=== PATIENT | male | born 1970 | race Caucasian/White ===

== ENCOUNTER → 2020-08-26 14:29 | Outpatient (BNVA) | payer BC, MEDICAID, SELFPAY | PROVIDERS: PCP Family Medicine; Referring Provider Family Medicine; Visit Provider Internal Medicine Gastroenterology | DX: Z76.89 Persons encountering health services in other specified circumstances (principal) ==

== ENCOUNTER 2021-03-20 07:56 | Day surgery (SDC) | payer BC, MEDICAID, SELFPAY ==
[2021-03-20 08:05] VITALS: BMI 33.2
[2021-03-20 08:18] VITALS: BP 141/89; PULSE 75; RESP 18; TEMP 36.5; O2SAT 98
--- NOTE | 2021-03-20 08:57 | HO.ANESPROP2 ---
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 (Acute) Colon cancer screening (Acute) Diverticulosis (Acute) High cholesterol (Acute) Renal stones (Acute) Past Medical History Medical History Elevated cholesterol GERD (gastroesophageal reflux disease) HTN (hypertension) Family History Family History Father Family history of high blood pressure Hx of esophageal malignancy History of pancreatic cancer Mother Hx of cancer of lung Surgical History Surgical History History of colonoscopy Hx of endoscopy S/P correction of deviated nasal septum (~2012) Social History Social History Alcohol intake: never Patient Tobacco Use Status: Never used Tobacco Use of substances other than those prescribed or required for medical reasons: No Are you DNR?: No Advance Directives: No Advance Directives Information Provided: Yes Meds Allergies Allergy/AdvReac Type Severity Reaction Status Date / Time No Known Allergies Allergy Verified 03/20/21 08:04 [No Known Allergies*] Exam Exam Date and Time: March 20, 2021 0857 Height,Weight and Vital Signs: Height 5 ft 9 in Weight 102.058 kg Last Vital Signs Temp 97.7 F 03/20/21 08:18 Pulse 75 03/20/21 08:18 Resp 18 03/20/21 08:18 BP 141/89 H 03/20/21 08:18 Pulse Ox 98 03/20/21 08:18 Airway Mallampati Class: II TM Dist: >3cm Neck ROM: Full
--- NOTE | 2021-03-20 09:03 | W.PM.OPN ---
Operative Note Operative Note Date of Service: 03/20/21 Narrative: Pre-op diagnosis: GERD, follow-up of Ron's metaplasia Post-op diagnosis: same Procedure: FLEXIBLE TRANSORAL UPPER GASTROINTESTINAL ENDOSCOPY WITH BIOPSIES Consent: Indications for the procedure and potential complications of bleeding, perforation, reaction to medications and missed diagnosis were discussed with the patient and informed consent was obtained. Instrument: Olympus GIF H 190 mid size upper endoscope Monitoring: Vital signs and clinical assessment, continuous EKG monitoring, Pulse oximetry, Carbon Dioxide monitoring and blood pressure monitoring were done throughout the procedure. Procedure: The patient was placed in the left lateral decubitis position and pre-procedure medications were administered and a bite block was placed. The endoscope was inserted into the mouth and advanced under direct vision to the third part of duodenum. A careful inspection was made as the upper endoscope was withdrawn including a retroflexed examination of the proximal stomach; Findings and interventions are described below. Findings: Larynx: Normal Esophagus: GE junction at 36 cms, hiatal hernia 36 to 40 cms. No esophagitis and two 1.5 to 2 cms tongues of Ron?s from 34 to 36 cms - biopsied. Stomach: Mild gastric erythema. Biopsies obtained during last EGD were negative for Helicobacter pylori. Grade 4 flap valve on retroflexed examination of the cardia. Duodenum: Normal bulb and descending duodenum Intervention: Biopsies as noted above Impression and Post Procedure Diagnosis: Endoscopy Findings: ESOPHAGUS: GE junction at 36 cms, hiatal hernia 36 to 40 cms. Focal esophagitis at GE junction and two 1.5 to 2 cms tongues of suspected Ron?s from 34 to 36 cms - biopsied. Plan: Await pathology results Patient has an appointment on 04/02/21 in the GI Clinic with Britany Duran M.D.-. Above findings were reviewed with the patient and Ron's handout was given in the discharge area Surgeon: Britany Duran MD Anesthesia: MAC (Teresita Agrawal CRNA) Was an Food Counselor used for this Procedure?: Yes Food Counselor: Stephanie Esteban Estimated blood loss (mL): 0 Pathology: other (A. Distal esophagus - rule out Ron's/dysplasia) Condition: stable Disposition: PACU
--- NOTE | 2021-03-20 09:03 | MHC.SHP ---
Pre-Procedural Eval Section A Date of Service: 03/20/21 The patient is an INPATIENT: No The History & Physical has been completed within 30 days and I have reviewed it.: No Section B Chief Complaint: Barretts Details of Present Illness: For follow-up of Ron's metaplasia Relevant Family History (Specify if Yes): Yes Relevant Social History: None Present Medications: see Short Stay Collaborative assessment Medical History: Significant History (GERD, Ron's esophagus without dysplasia, high cholesterol, renal stones) History of Previous Operations: Relevant previous surgery/procedure and date(s) (History of colonoscopy Hx of endoscopy S/P correction of deviated nasal septum (~2012)) Allergies: Allergies Allergy/AdvReac Type Severity Reaction Status Date / Time No Known Allergies Allergy Verified 03/20/21 08:04 [No Known Allergies*] Review of Systems Sugical H&P ROS: Negative: Constitution, Cardiovascular, Respiratory and Gastrointestinal Exam Surgical H&P Exam: Normal: HEENT, Normal: Heart, Normal: Lungs and Normal: Abdomen Plan Diagnosis/Plan: Unchanged I have reviewed the history and physical and performed a pertinent physical examination on my patient. No changes have occurred unless specified.
[2021-03-20] MEDS: Lactated Ringers 1,000 ML 100 ML IVCONT (09:04)
[2021-03-20 09:29] VITALS: BP 103/60; PULSE 65; RESP 15; TEMP 36.1; O2SAT 97
[2021-03-20 09:44] VITALS: BP 110/73; PULSE 63; RESP 14; O2SAT 95
[2021-03-20 10:02] VITALS: BP 115/77; PULSE 55; RESP 15; TEMP 36.2; O2SAT 97
== END 2021-03-20 10:56 | disposition home or self-care (01) ==
PROVIDERS: PCP Internal Medicine; Visit Provider Internal Medicine Gastroenterology
PROC: 0DJ08ZZ Inspection of Upper Intestinal Tract, Via Natural or Artificial Opening Endoscopic (ICD-10-PCS; CPT 43235; principal; 2021-03-20 09:30)
DX: K22.70 Barrett's esophagus without dysplasia (principal); K21.9 Gastro-esophageal reflux disease without esophagitis; K44.9 Diaphragmatic hernia without obstruction or gangrene; E78.00 Pure hypercholesterolemia, unspecified; I10 Essential (primary) hypertension; Z79.899 Other long term (current) drug therapy
CPT/HCPCS: 43239; 88305

== ENCOUNTER → 2021-04-02 15:07 | Outpatient (BNVA) | payer BC, MEDICAID, SELFPAY | PROVIDERS: PCP Internal Medicine; Visit Provider Internal Medicine Gastroenterology ==

== ENCOUNTER → 2022-08-18 08:53 | Outpatient (BNVA) | payer SELFPAY | PROVIDERS: Visit Provider Physician Assistant | DX: Z02.79 Encounter for issue of other medical certificate (principal) ==

== ENCOUNTER → 2023-03-31 07:58 | Outpatient (BNVA) | payer BC, SELFPAY | PROVIDERS: Visit Provider Internal Medicine Gastroenterology ==

== ENCOUNTER 2024-03-22 07:59 | Outpatient (AMB) | payer BC, SELFPAY ==
--- NOTE | 2024-03-22 08:08 | A.OFFVIS_ITS ---
Vital Signs 03/22/24 08:10 Height 5 ft 9 in Weight 220 lb 7.396 oz BMI 32.6 BP 145/92 H Blood Pressure Location Lt brachial Position Sitting Pulse 78 Intake Visit Reasons: 1 year follow up Intake Note: Pro presents in the office as a 1 year follow up. CC: He states that he takes omeprazole as needs - intermittent and states he is not having an concerns at this time. Dog Warden Required: No Allergies Seasonal Allergies Allergy (Mild, Verified 03/22/24 08:10) Unknown Medication List - Last Reconciled 03/22/24 by Britany Duran MD omeprazole 20 mg PO DAILY 90 days HPI HPI 1 year follow up: Details: GI CLINIC VISIT FOR THIS 53-YEAR-OLD MALE FOR FOLLOW-UP OF GERD AND BARRETTS ESOPHAGUS ? CHRONIC ILLNESSES: high bp, high cholesterol, renal stones ? LABS IN [facility]: 02/2019 Normal CBC, chem panel and LFTs. ?ENDOSCOPIC PROCEDURES: 03/20/21 EGD SHOWED: ESOPHAGUS: GE junction at 36 cms, hiatal hernia 36 to 40 cms. Focal esophagitis at GE junction and two 1.5 to 2 cms tongues of suspected Ron?s from 34 to 36 cms - biopsied. Plan:? Patient has an appointment on 04/02/21 in the GI Clinic with Britany Duran M.D.-. Above findings were reviewed with the patient and Ron's handout was given in the discharge area BIOPSIES SHOWED: Esophagus, distal, biopsy: - Ron esophagus with background moderate chronic inactive inflammation. - No dysplasia seen. - Squamous mucosa within normal limits. 01/29/20 EGD AND COLONOSCOPY SHOWED: ? ESOPHAGUS: GE junction at 36 cms, hiatal hernia 36 to 40 cms. Focal esophagitis at GE junction and two 1.5 to 2 cms tongues of suspected Barretts from 34 to 36 cms - biopsied. ? STOMACH: Gastritis ? Colonoscopy Findings: ? No polyps were detected ? Moderate diverticulosis in the sigmoid colon ? Moderate hemorrhoids on retroflexed exam. ? Plan: ? Await pathology results ? Start Omeprazole 20 mg once a day for GERD ? Patient has an appointment on 02/14/20 in the GI Clinic with Britany paz M.D.-. ? Repeat Colonoscopy interval in 10 years. ? Above findings were reviewed with the patient. ? BIOPSIES SHOWED: ? A. Stomach, biopsy: Gastric mucosa with mild chronic, inactive gastritis; negative for ? Helicobacter pylori; negative for intestinal metaplasia/dysplasia. ? B. Esophagus, biopsy: Columnar mucosa with chronic inactive inflammation and ? intestinal metaplasia (see Comment); negative for dysplasia; squamous epithelium not present. ? Comment: This finding may represent Ron's metaplasia. Clinical and endoscopic correlation is necessary. ?TODAY'S VISIT PCP is Dr Murrieta CC: He states that he takes omeprazole as needs - intermittent and states he is not having an concerns at this time. Stopped cholestrol and blood pressure medications in Oct and plans to resume GERD symptoms comes and goes. Was taking Omeprazole prn due to concern for side effects and can have symptoms (2-3 times a week) and would like to follow a schedule Advised to take Omeprazole every other day until next EGD is performed PAST VISIT: Decreased Omeprazole from daily to every other day and now taking every 3rd day. Takes an extra Omeprazole if he notes symptoms which is rare and usually associated with acidic foods Changed his diet since mid Oct and has lost 18 lbs since. Going on a cruise to the [facility] next week. Has not had any heartburn since he started taking Omeprazole once a day. Noted recurrent symptoms when he ran out of Omeprazole for a few days. Has not noted much acid reflux. 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 ? Intermittent heartburn when he bends over and if he has spicy food x few years. ? Drinking coffee can cause heartburn. ? Can have symptoms at night after dinner and resolves with 2 tab of TUMS - once a week, sometimes a couple of days in a row. ? Patient denies change in bowel habits, black stools or rectal bleeding ? Denies dysphagia, nausea or vomiting, change in appetite or weight. ? Dad had GERD/Barretts's esophagus and esophageal cancer and ? pancreatic CA - smoker and daily ETOH. ? Mother had lung cancer - had surgery - ? past smoking ? Denies known Fh of colon polyps, colon cancer. ? Denies sleep apnea and snores intermittently ? Denies problems with anesthesia in the?past PFSH Medical History GERD (gastroesophageal reflux disease) Elevated cholesterol HTN (hypertension) Surgical History Hx of esophagogastroduodenoscopy S/P correction of deviated nasal septum (~2012) Hx of endoscopy History of colonoscopy Family History Father Family history of high blood pressure Hx of esophageal malignancy History of pancreatic cancer Mother Hx of cancer of lung Social History Alcohol intake: never Patient Tobacco Use Status: Never used Tobacco Review of Systems Const All systems reviewed & are unremarkable except as noted in HPI and below Physical Exam Vital Signs: Last Vital Signs Pulse 78 03/22/24 08:10 BP 145/92 H 03/22/24 08:10 BMI result Body Mass Index 32.6 Const General: healthy appearing and no acute distress Nutritional Appearance: obese Orientation/consciousness: patient oriented x3 Limitations: no limitations HEENT Head: Yes normal to inspection Ears: hearing grossly normal bilaterally Mouth: Normal oral and palatal mucosa present Eyes Sclerae: sclerae normal Pupils: Equal, round and reactive pupils present Neck Neck: Yes normal visual inspection Chest Chest palpation & inspection: normal inspection of the chest Resp Effort & Inspection: normal respiratory effort Auscultation: clear to auscultation bilaterally Cardio Palpation: normal PMI Rate: regular rate Rhythm: regular rhythm Heart sounds: S1 normal heart sound present, S2 normal heart sound present and no murmurs GI Palpation (GI): Soft to palpation, nontender and No hepatosplenomegaly present Auscultation: normal bowel sounds Rectal Exam - Male: Yes deferred Skin General skin exam: no rashes or lesions noted Neuro General: patient oriented x3, gait normal and moves all extremities Cranial nerves: Yes Equal, round and reactive pupils present Psych Appearance: grossly normal Mental Status: mental status grossly normal Assessment & Plan Assessment & Plan (1) GERD with esophagitis: Comment: Continue omeprazole 20 mg once daily. 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 03/20/21 EGD SHOWED: GE junction at 36 cms, hiatal hernia 36 to 40 cms. Focal esophagitis at GE junction and two 1.5 to 2 cms tongues of suspected Ron?s from 34 to 36 cms - biopsied. BIOPSIES SHOWED: Esophagus, distal, biopsy: - Ron esophagus with background moderate chronic inactive inflammation. - No dysplasia seen. - Squamous mucosa within normal limits. FU EGD in 3 yrs (due 01/2024) Code(s): K22.70 - Ron's esophagus without dysplasia Category: Medical (3) Colon cancer screening: Comment: 01/29/2020 colonoscopy showed diverticulosis and no polyps were detected. Patient denies known family history of colon cancer, his mom has a history of colon polyps. Patient was advised repeat colonoscopy in 5 years (due 01/2025) Code(s): Z12.11 - Encounter for screening for malignant neoplasm of colon Category: Medical Plan 53 YM with high bp, high cholesterol, renal stones seen for symptoms of itermittent heartburn associated with bending and intake of spicy food. Dad had GERD/Barretts's esophagus and esophageal cancer and ? pancreatic CA - smoker and daily ETOH. 01/29/20 EGD showed gastritis and focal esophagitis at GE junction and two 1.5 to 2 cms tongues of suspected Barretts. 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 02/2021 Had repeat EGD? for Ron's surveillance. 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
[2024-03-22 08:10] VITALS: BP 145/92; PULSE 78; BMI 32.6
== END 2024-03-22 09:18 | disposition home or self-care (01) ==
LOC: HO.HGI 07:59
PROVIDERS: Visit Provider Internal Medicine Gastroenterology
DX: K21.00 Gastro-esophageal reflux disease with esophagitis, without bleeding (principal); K22.70 Barrett's esophagus without dysplasia; Z12.11 Encounter for screening for malignant neoplasm of colon
CPT/HCPCS: 99214

== ENCOUNTER → 2024-03-22 07:59 | Outpatient (BNVA) | payer BC, SELFPAY | PROVIDERS: Visit Provider Internal Medicine Gastroenterology ==

== ENCOUNTER 2024-09-28 07:35 | Day surgery (SDC) | payer BC, SELFPAY ==
--- NOTE | 2024-09-27 10:14 | HO.ANESPROP2 ---
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 (Acute) Colon cancer screening (Acute) Diverticulosis (Acute) High cholesterol (Acute) Renal stones (Acute) Past Medical History Medical History GERD (gastroesophageal reflux disease) Elevated cholesterol HTN (hypertension) Family History Family History Father Family history of high blood pressure Hx of esophageal malignancy History of pancreatic cancer Mother Hx of cancer of lung Surgical History Surgical History Hx of esophagogastroduodenoscopy S/P correction of deviated nasal septum (~2012) Hx of endoscopy History of colonoscopy Social History Social History Alcohol intake: never Patient Tobacco Use Status: Never used Tobacco Meds Allergies Allergy/AdvReac Type Severity Reaction Status Date / Time Seasonal Allergies Allergy Mild Unknown Verified 03/22/24 08:10 Assessment and Plan Assessment Anesthesia Assessment: Chart Reviewed
[2024-09-28 07:44] VITALS: BP 149/93; PULSE 87; RESP 16; TEMP 36.8; O2SAT 97; BMI 34.0
[2024-09-28] MEDS: Lactated Ringers 1,000 ML 100 ML IVCONT (07:57)
--- NOTE | 2024-09-28 08:09 | MHC.SHP ---
Pre-Procedural Eval Section A - 24 Hr Update-Section A only Date of Service: 09/28/24 The patient is an INPATIENT: No The patient has been examined within 24 hours of the surgical procedure. 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 Details of Present Illness: For follow-up of Ron's metaplasia Relevant Family History (Specify if Yes): Yes Relevant Social History: None Present Medications: see Short Stay Collaborative assessment Medical History: Significant History (GERD, Ron's esophagus without dysplasia, high cholesterol, renal stones) History of Previous Operations: Relevant previous surgery/procedure and date(s) (History of colonoscopy Hx of endoscopy S/P correction of deviated nasal septum (~2012)) Allergies: Allergies Allergy/AdvReac Type Severity Reaction Status Date / Time Seasonal Allergies Allergy Mild Unknown Verified 03/22/24 08:10 Review of Systems Sugical H&P ROS: Negative: Constitution, Cardiovascular, Respiratory and Gastrointestinal Exam Surgical H&P Exam: Normal: HEENT, Normal: Heart, Normal: Lungs and Normal: Abdomen Plan Diagnosis/Plan: Unchanged I have reviewed the history and physical and performed a pertinent physical examination on my patient. No changes have occurred unless specified. Time Spent With Patient Time: Total time managing care of this patient today ____ minutes.
--- NOTE | 2024-09-28 08:27 | HO.ANESPROP2 ---
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 (Acute) Colon cancer screening (Acute) Diverticulosis (Acute) High cholesterol (Acute) Renal stones (Acute) Past Medical History Medical History GERD (gastroesophageal reflux disease) Elevated cholesterol HTN (hypertension) Functional capacity: independent ambulation Family History Family History Father Family history of high blood pressure Hx of esophageal malignancy History of pancreatic cancer Mother Hx of cancer of lung Family history of problems with anesthesia: No Surgical History Surgical History Hx of esophagogastroduodenoscopy S/P correction of deviated nasal septum (~2012) Hx of endoscopy History of colonoscopy History of Problems with Anesthesia: No Social History Social History Are you a primary manager critical care to a significant other at home: No Do you presently have visiting nurse or other home services: No Alcohol intake: never Patient Tobacco Use Status: Never used Tobacco Use of substances other than those prescribed or required for medical reasons: No Have you been hit, kicked, punched, or otherwise hurt by someone within the past year? If so, by whom?: No Are you DNR?: No Advance Directives: No Advance Directives Information Provided: Yes Recently lost weight without trying: No Meds Allergies Allergy/AdvReac Type Severity Reaction Status Date / Time Seasonal Allergies Allergy Mild Unknown Verified 03/22/24 08:10 Active Medications: Current Medications Lactated Ringer's (Lr) 1,000 mls @ 100 mls/hr IVCONT .Q10H GEORGI Last Admin: 09/28/24 07:57 Dose: 100 mls/hr Exam Height,Weight and Vital Signs: Height 5 ft 9 in Weight 104.326 kg Last Vital Signs Temp 98.2 F 09/28/24 07:44 Pulse 87 09/28/24 07:44 Resp 16 09/28/24 07:44 BP 149/93 H 09/28/24 07:44 Pulse Ox 97 09/28/24 07:44 O2 Del Method Room Air 09/28/24 07:44 Airway Mallampati Class: II TM Dist: >3cm Neck ROM: Full Heart: RRR Lungs: CTA Assessment and Plan Assessment Anesthesia Assessment: Anesthesia Plan Discussed and Chart Reviewed Final Anesthetic Review Family History of Problems with Anesthesia: No History of Problems with Anesthesia: No NPO: Yes ASA Class: II Final Preanesthetic Review: Meds/Allgs Chart Reviewed, Consent Obtained/Reviewed and Anes Risks/Benef Reviewed Patient Risk: Low Procedure Risk: Low Anesthetic Plan Anesthetic Plan: MAC: Disposition: Standard PACU
--- NOTE | 2024-09-28 08:47 | W.PM.OPN ---
Operative Note Operative Note Date of Service: 09/28/24 Narrative: FLEXIBLE TRANSORAL UPPER GASTROINTESTINAL ENDOSCOPY WITH BIOPSIES Pre-op diagnosis: GERD, follow-up of Barretts esophagus Post-op diagnosis: GERD, hiatal hernia, Barretts esophagus Endoscopist:? Britany Duran MD Anesthesia:?MAC UPPER ENDOSCOPY Consent: Indications for the procedure and potential complications of bleeding, perforation, reaction to medications and missed diagnosis were discussed with the patient and informed consent was obtained. Instrument: Olympus GIF H 190 mid size upper endoscope Monitoring: Vital signs and clinical assessment, continuous EKG monitoring, Pulse oximetry, Carbon Dioxide monitoring and blood pressure monitoring were done throughout the procedure. Procedure: The patient was placed in the left lateral decubitis position and pre-procedure medications were administered and a bite block was placed. The endoscope was inserted into the mouth and advanced under direct vision to the third part of duodenum. A careful inspection was made as the upper endoscope was withdrawn including a retroflexed examination of the proximal stomach; Findings and interventions are described below. Findings: Larynx: Normal Esophagus: GE junction at 36 cms, hiatal hernia 36 to 40 cms. No esophagitis and two 1.5 to 2 cms tongues of Ron?s from 34 to 36 cms - surveillance biopsies were obtaied. Stomach: Mild gastric erythema. Biopsies obtained during last EGD were negative for Helicobacter pylori. Grade 4 flap valve on retroflexed examination of the cardia. Duodenum: Normal bulb and descending duodenum Intervention: Biopsies as noted above Impression and Post Procedure Diagnosis: Endoscopy Findings: ESOPHAGUS: Hiatal hernia, two 1.5 to 2 cms tongues of Ron's metaplasia - surveillance biopsies were obtained Plan: Pt has a FU appointment on 10/11/[address] Duran. Repeat EGD in 3 years for follow-up of Barretts. Above findings were reviewed with the patient and relevant handouts were given and the discharge area. BIOPSIES SHOWED: Esophagus, distal, biopsy: Squamous mucosa with focal intraepithelial neutrophils and rare eosinophils (up to 1 per high-power field) consistent with esophagitis, and columnar mucosa with mild inflammation and intestinal metaplasia consistent with Ron's mucosa; negative for dysplasia.
[2024-09-28 08:52] VITALS: BP 104/63; PULSE 80; RESP 18; TEMP 36.5; O2SAT 94
[2024-09-28 09:07] VITALS: BP 119/81; PULSE 78; RESP 16; O2SAT 95
--- NOTE | 2024-09-28 09:13 | HO.POSTANES ---
Post Anesthesia Evaluation Post Anesthesia Evaluation Date of Service: 09/28/24 Vital Signs: Vital Signs Temp Pulse Resp BP Pulse Ox O2 Del Method 09/28/24 09:07 78 16 119/81 95 Room Air 09/28/24 08:52 97.7 F 80 18 104/63 94 Room Air 09/28/24 07:44 98.2 F 87 16 149/93 H 97 Room Air Anesthesia: Monitored Mental Status: Awake Pain Control: Satisfactory Nausea/Vomiting: None Hydration: Adequate Anesthesia-Related Issues: No Anes. Related Issues
[2024-09-28 09:21] VITALS: BP 128/82; PULSE 81; RESP 16; TEMP 36.2; O2SAT 95
--- NOTE | 2024-09-28 09:57 | HO.POSTANES ---
Post Anesthesia Evaluation Post Anesthesia Evaluation Date of Service: 09/28/24 Vital Signs: Vital Signs Temp Pulse Resp BP Pulse Ox O2 Del Method 09/28/24 09:21 97.2 F 81 16 128/82 95 Room Air 09/28/24 09:07 78 16 119/81 95 Room Air 09/28/24 08:52 97.7 F 80 18 104/63 94 Room Air 09/28/24 07:44 98.2 F 87 16 149/93 H 97 Room Air Anesthesia: Monitored Mental Status: Awake Pain Control: Satisfactory Nausea/Vomiting: None Hydration: Adequate Anesthesia-Related Issues: No Anes. Related Issues
== END 2024-09-28 09:55 | disposition home or self-care (01) ==
PROVIDERS: PCP Family Medicine; Visit Provider Internal Medicine Gastroenterology
PROC: 0DJ08ZZ Inspection of Upper Intestinal Tract, Via Natural or Artificial Opening Endoscopic (ICD-10-PCS; CPT 43235; principal; 2024-09-28 08:30)
DX: K22.70 Barrett's esophagus without dysplasia (principal); K21.9 Gastro-esophageal reflux disease without esophagitis; K44.9 Diaphragmatic hernia without obstruction or gangrene; I10 Essential (primary) hypertension; E78.00 Pure hypercholesterolemia, unspecified; N20.0 Calculus of kidney; Z80.0 Family history of malignant neoplasm of digestive organs; Z80.1 Family history of malignant neoplasm of trachea, bronchus and lung; Z79.899 Other long term (current) drug therapy; Z98.890 Other specified postprocedural states
CPT/HCPCS: 43239; 88305; J2003; J2704

== ENCOUNTER → 2024-09-28 07:35 | Outpatient (BNV) | payer BC, SELFPAY | PROVIDERS: PCP Family Medicine; Visit Provider Internal Medicine Gastroenterology | DX: K21.00 Gastro-esophageal reflux disease with esophagitis, without bleeding (principal); K22.70 Barrett's esophagus without dysplasia | CPT/HCPCS: 43239 ==

== ENCOUNTER 2024-10-11 08:01 | Outpatient (AMB) | payer BC, SELFPAY ==
--- NOTE | 2024-10-11 08:09 | A.OFFVIS_ITS ---
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 Patient denies any GI issues for today visit. Stress Test Technician Required: No Accompanied by: Self / Same As Patient Allergies Seasonal Allergies Allergy (Mild, Verified 03/22/24 08:10) Unknown Medication List - Last Reconciled 10/11/24 by Britany Duran MD lisinopril 5 mg PO DAILY omeprazole 20 mg PO DAILY HPI HPI s/p egd: Details: GI CLINIC VISIT FOR THIS 53-YEAR-OLD MALE FOR FOLLOW-UP OF GERD AND BARRETTS ESOPHAGUS ? CHRONIC ILLNESSES: high bp, high cholesterol, renal stones ??TODAY'S VISIT PCP is Dr Murrieta CC: He states that he takes omeprazole as needs - intermittent and states he is not having an concerns at this time. EGD results reviewed with the patient and advised repeat EGD in 3 years Stopped cholestrol and blood pressure medications in Oct and resumed BP meds due to high blood pressure GERD symptoms comes and goes. Was taking Omeprazole prn due to concern for side effects and can have symptoms (2-3 times a week) and would like to follow a schedule Taking Omeprazole every other day with adequate control of symptoms PAST VISIT: Decreased Omeprazole from daily to every other day and now taking every 3rd day. Takes an extra Omeprazole if he notes symptoms which is rare and usually associated with acidic foods Changed his diet since mid Oct and has lost 18 lbs since. Going on a cruise to the [facility] next week. Has not had any heartburn since he started taking Omeprazole once a day. Noted recurrent symptoms when he ran out of Omeprazole for a few days. Has not noted much acid reflux. 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 ? Intermittent heartburn when he bends over and if he has spicy food x few years. ? Drinking coffee can cause heartburn. ? Can have symptoms at night after dinner and resolves with 2 tab of TUMS - once a week, sometimes a couple of days in a row. ? Patient denies change in bowel habits, black stools or rectal bleeding ? Denies dysphagia, nausea or vomiting, change in appetite or weight. ? Dad had GERD/Barretts's esophagus and esophageal cancer and ? pancreatic CA - smoker and daily ETOH. ? Mother had lung cancer - had surgery - ? past smoking ? Denies known Fh of colon polyps, colon cancer. ? Denies sleep apnea and snores intermittently ? Denies problems with anesthesia in the?past ? LABS IN [facility]: 02/2019 Normal CBC, chem panel and LFTs. ?ENDOSCOPIC PROCEDURES: 03/20/21 EGD SHOWED: ESOPHAGUS: GE junction at 36 cms, hiatal hernia 36 to 40 cms. Focal esophagitis at GE junction and two 1.5 to 2 cms tongues of suspected Ron?s from 34 to 36 cms - biopsied. Plan:? Patient has an appointment on 04/02/21 in the GI Clinic with Britany Duran M.D.-. Above findings were reviewed with the patient and Ron's handout was given in the discharge area BIOPSIES SHOWED: Esophagus, distal, biopsy: - Ron esophagus with background moderate chronic inactive inflammation. - No dysplasia seen. - Squamous mucosa within normal limits. 01/29/20 EGD AND COLONOSCOPY SHOWED: ? ESOPHAGUS: GE junction at 36 cms, hiatal hernia 36 to 40 cms. Focal esophagitis at GE junction and two 1.5 to 2 cms tongues of suspected Barretts from 34 to 36 cms - biopsied. ? STOMACH: Gastritis ? Colonoscopy Findings: ? No polyps were detected ? Moderate diverticulosis in the sigmoid colon ? Moderate hemorrhoids on retroflexed exam. ? Plan: ? Await pathology results ? Start Omeprazole 20 mg once a day for GERD ? Patient has an appointment on 02/14/20 in the GI Clinic with Britany Duran M.D.-. ? Repeat Colonoscopy interval in 10 years. ? Above findings were reviewed with the patient. ? BIOPSIES SHOWED: ? A. Stomach, biopsy: Gastric mucosa with mild chronic, inactive gastritis; negative for ? Helicobacter pylori; negative for intestinal metaplasia/dysplasia. ? B. Esophagus, biopsy: Columnar mucosa with chronic inactive inflammation and ? intestinal metaplasia (see Comment); negative for dysplasia; squamous epithelium not present. ? Comment: This finding may represent Ron's metaplasia. Clinical and endoscopic correlation is necessary. REPLACED BY [facility] Medical History (Updated 10/11/24 @ 08:40 by Britany Duran MD) GERD (gastroesophageal reflux disease) Elevated cholesterol HTN (hypertension) Surgical History Hx of esophagogastroduodenoscopy S/P correction of deviated nasal septum (~2012) Hx of endoscopy History of colonoscopy Family History Father Family history of high blood pressure Hx of esophageal malignancy History of pancreatic cancer Mother Hx of cancer of lung Social History Are you a primary transitional care manager to a significant other at home: No Do you presently have visiting nurse or other home services: No Alcohol intake: never Patient Tobacco Use Status: Never used Tobacco Review of Systems Const All systems reviewed & are unremarkable except as noted in HPI and below Physical Exam Vital Signs: Last Vital Signs Pulse 105 H 10/11/24 08:12 BP 122/69 10/11/24 08:12 BMI result Body Mass Index 33.5 Const General: healthy appearing and no acute distress Nutritional Appearance: obese Orientation/consciousness: patient oriented x3 Limitations: no limitations HEENT Head: Yes normal to inspection Ears: hearing grossly normal bilaterally Mouth: Normal oral and palatal mucosa present Eyes Sclerae: sclerae normal Pupils: Equal, round and reactive pupils present Neck Neck: Yes normal visual inspection Chest Chest palpation & inspection: normal inspection of the chest Resp Effort & Inspection: normal respiratory effort Auscultation: clear to auscultation bilaterally Cardio Palpation: normal PMI Rate: regular rate Rhythm: regular rhythm Heart sounds: S1 normal heart sound present, S2 normal heart sound present and no murmurs GI Palpation (GI): Soft to palpation, nontender and No hepatosplenomegaly present Auscultation: normal bowel sounds Rectal Exam - Male: Yes deferred Skin General skin exam: no rashes or lesions noted Neuro General: patient oriented x3, gait normal and moves all extremities Cranial nerves: Yes Equal, round and reactive pupils present Psych Appearance: grossly normal Mental Status: mental status grossly normal Assessment & Plan Assessment & Plan (1) GERD with esophagitis: Comment: Continue omeprazole 20 mg once daily. 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 03/20/21 EGD SHOWED: GE junction at 36 cms, hiatal hernia 36 to 40 cms. Focal esophagitis at GE junction and two 1.5 to 2 cms tongues of suspected Ron?s from 34 to 36 cms - biopsied. BIOPSIES SHOWED: Esophagus, distal, biopsy: - Ron esophagus with background moderate chronic inactive inflammation. - No dysplasia seen. - Squamous mucosa within normal limits. FU EGD in 3 yrs (due 01/2024) Code(s): K22.70 - Ron's esophagus without dysplasia Category: Medical (3) Colon cancer screening: Comment: 01/29/2020 colonoscopy showed diverticulosis and no polyps were detected. Patient denies known family history of colon cancer, his mom has a history of colon polyps. Patient was advised repeat colonoscopy in 5 years (due 01/2025) Code(s): Z12.11 - Encounter for screening for malignant neoplasm of colon Category: Medical (4) Diverticulosis: Code(s): K57.90 - Diverticulosis of intestine, part unspecified, without perforation or abscess without bleeding Category: Medical (5) Obesity: Code(s): E66.9 - Obesity, unspecified Category: Medical Plan 54 YM with high bp, high cholesterol, renal stones seen for symptoms of intermittent heartburn associated with bending and intake of spicy food. Dad had GERD/Barretts's esophagus and esophageal cancer and ? pancreatic CA - smoker and daily ETOH. 01/29/20 EGD showed gastritis and focal esophagitis at GE junction and two 1.5 to 2 cms tongues of suspected Barretts. 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 02/2021 Had repeat EGD? for Ron's surveillance. 09/28/24 EGD was performed for Ron's surveillance and results as noted. 10/11/23 EGD results reviewed with the patient and advised repeat EGD in 3 years Taking Omeprazole every other day with adequate control of symptoms Advised to schedule an abd US to check for fatty liver due to obesity Pt reports he goes to the Gym regularly and does not eat fried or fatty foods and BMI of 33.5 is mostly muscle and less fat. FU in 6 months Orders: Orders US abdomen complete Today E66.9 - Obesity, unspecified Coding Level of Care Code Est Pt Level 3 (26229) Diagnoses GERD with esophagitis K21.00 Ron's esophagus without dysplasia K22.70 Colon cancer screening Z12.11 Diverticulosis K57.90 Obesity E66.9 Time Spent (min) 18
[2024-10-11 08:12] VITALS: BP 122/69; PULSE 105; BMI 33.5
== END 2024-10-11 08:43 | disposition home or self-care (01) ==
PROVIDERS: Visit Provider Internal Medicine Gastroenterology
DX: K21.00 Gastro-esophageal reflux disease with esophagitis, without bleeding (principal); K22.70 Barrett's esophagus without dysplasia; K57.90 Diverticulosis of intestine, part unspecified, without perforation or abscess without bleeding; Z12.11 Encounter for screening for malignant neoplasm of colon
CPT/HCPCS: 99213

== ENCOUNTER 2024-11-12 07:57 | Outpatient (REF) | payer BC, SELFPAY ==
--- NOTE | ~2024-11-12 | US_ITS ---
CLINICAL HISTORY: E66.9 - Obesity, unspecified US abdomen complete Comparison: 02/17/2017 Findings: The visualized pancreas is normal. The aorta and inferior vena cava are normal caliber. The appearance of the liver suggests fatty infiltration without focal lesion. There is no intrahepatic bile duct dilatation. The common duct is 4.8 mm in diameter. The gallbladder is normal. There is no sonographic Reynolds sign. The main portal vein is antegrade. The right kidney is 12.7 cm in length. The left kidney is 13.1 cm in length. The spleen is normal. No ascites. IMPRESSION: 1. Hepatic steatosis. This document has been electronically signed by: Kayden Wilkerson MD on 11/12/2024 08:45:13
== END 2024-11-12 07:58 | disposition home or self-care (01) ==
LOC: HO.US 07:57
PROVIDERS: Visit Provider Internal Medicine Gastroenterology
DX: E66.9 Obesity, unspecified (principal)
CPT/HCPCS: 76700

== ENCOUNTER → 2024-11-12 07:59 | Outpatient (BNV) | payer BC, SELFPAY | PROVIDERS: Visit Provider Specialist | DX: E66.9 Obesity, unspecified (principal) | CPT/HCPCS: 76700 ==

== ENCOUNTER 2025-04-04 07:23 | Outpatient (AMB) | payer BC, SELFPAY ==
--- NOTE | 2025-04-04 07:25 | A.OFFVIS_ITS ---
Vital Signs 04/04/25 07:29 Height 5 ft 9 in Weight 216 lb 0.848 oz BMI 31.9 BP 129/81 Blood Pressure Location Lt brachial Position Sitting Pulse 65 Intake Visit Reasons: 6 month f.u Barretts GERD Intake Note: Pro presents in the office as a 6 month follow up for GERD and Ron's. CC: States that he has some acid reflux! Omeprazole seems to help! Cytotechnologist Supervisor Required: No Allergies Seasonal Allergies Allergy (Mild, Verified 04/04/25 07:25) Unknown Medication List - Last Reconciled 04/04/25 by Britany Duran MD lisinopril 5 mg PO DAILY omeprazole 20 mg PO DAILY HPI HPI 6 month f.u Barretts GERD: Details: GI CLINIC VISIT FOR THIS 54-YEAR-OLD MALE WITH HYPERTENSION AND KIDNEY STONES FOR FOLLOW-UP OF GERD AND BARRETTS ESOPHAGUS ? CHRONIC ILLNESSES: high bp, high cholesterol, renal stones ??TODAY'S VISIT PCP is Dr Murrieta CC: He states that he takes omeprazole as needs - intermittent and states he is not having an concerns at this time. Lost 10 lbs by changing his diet. Taking Omeprazole every other day with adequate control of symptoms PAST VISIT: EGD results reviewed with the patient and advised repeat EGD in 3 years Stopped cholestrol and blood pressure medications in Oct and resumed BP meds due to high blood pressure GERD symptoms comes and goes. Was taking Omeprazole prn due to concern for side effects and can have symptoms (2-3 times a week) and would like to follow a schedule Decreased Omeprazole from daily to every other day and now taking every 3rd day. Takes an extra Omeprazole if he notes symptoms which is rare and usually associated with acidic foods Changed his diet since mid Oct and has lost 18 lbs since. Going on a cruise to the [place] next week. Has not had any heartburn since he started taking Omeprazole once a day. Noted recurrent symptoms when he ran out of Omeprazole for a few days. Has not noted much acid reflux. 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 ? Intermittent heartburn when he bends over and if he has spicy food x few years. ? Drinking coffee can cause heartburn. ? Can have symptoms at night after dinner and resolves with 2 tab of TUMS - once a week, sometimes a couple of days in a row. ? Patient denies change in bowel habits, black stools or rectal bleeding ? Denies dysphagia, nausea or vomiting, change in appetite or weight. ? Dad had GERD/Barretts's esophagus and esophageal cancer and ? pancreatic CA - smoker and daily ETOH. ? Mother had lung cancer - had surgery - ? past smoking ? Denies known Fh of colon polyps, colon cancer. ? Denies sleep apnea and snores intermittently ? Denies problems with anesthesia in the?past ? LABS IN [facility]: 02/2019 Normal CBC, chem panel and LFTs. ?ENDOSCOPIC PROCEDURES: 03/20/21 EGD SHOWED: ESOPHAGUS: GE junction at 36 cms, hiatal hernia 36 to 40 cms. Focal esophagitis at GE junction and two 1.5 to 2 cms tongues of suspected Ron?s from 34 to 36 cms - biopsied. Plan:? Patient has an appointment on 04/02/21 in the GI Clinic with Britany Duran M.D.-. Above findings were reviewed with the patient and Ron's handout was given in the discharge area BIOPSIES SHOWED: Esophagus, distal, biopsy: - Ron esophagus with background moderate chronic inactive inflammation. - No dysplasia seen. - Squamous mucosa within normal limits. 01/29/20 EGD AND COLONOSCOPY SHOWED: ? ESOPHAGUS: GE junction at 36 cms, hiatal hernia 36 to 40 cms. Focal esophagitis at GE junction and two 1.5 to 2 cms tongues of suspected Barretts from 34 to 36 cms - biopsied. ? STOMACH: Gastritis ? Colonoscopy Findings: ? No polyps were detected ? Moderate diverticulosis in the sigmoid colon ? Moderate hemorrhoids on retroflexed exam. ? Plan: ? Await pathology results ? Start Omeprazole 20 mg once a day for GERD ? Patient has an appointment on 02/14/20 in the GI Clinic with Britany Duran M.D.-. ? Repeat Colonoscopy interval in 10 years. ? Above findings were reviewed with the patient. ? BIOPSIES SHOWED: ? A. Stomach, biopsy: Gastric mucosa with mild chronic, inactive gastritis; negative for ? Helicobacter pylori; negative for intestinal metaplasia/dysplasia. ? B. Esophagus, biopsy: Columnar mucosa with chronic inactive inflammation and ? intestinal metaplasia (see Comment); negative for dysplasia; squamous epithelium not present. ? Comment: This finding may represent Ron's metaplasia. Clinical and endoscopic correlation is necessary [facility] Medical History GERD (gastroesophageal reflux disease) Elevated cholesterol HTN (hypertension) Surgical History Hx of esophagogastroduodenoscopy S/P correction of deviated nasal septum (~2012) Hx of endoscopy History of colonoscopy Family History Father Family history of high blood pressure Hx of esophageal malignancy History of pancreatic cancer Mother Hx of cancer of lung Social History Are you a primary medical care manager to a significant other at home: No Do you presently have visiting nurse or other home services: No Alcohol intake: never Patient Tobacco Use Status: Never used Tobacco Review of Systems Const Denies fever(s), Denies headache(s) and Reports weight loss (intentional wt loss of 11 lbs) Eyes Denies eye discharge and Denies irritation ENT Reports Normal hearing present, Denies dysphagia, Denies dizziness and Denies headache(s) Card Denies chest pain, Denies leg edema and Denies dyspnea on exertion Resp Denies cough, Denies dyspnea on exertion and Denies wheezing GI Denies abdominal pain, Denies change in bowel habits, Denies dysphagia and Denies heartburn Denies dysuria Musc Denies back pain and Denies arthralgias Skin/Breast Denies pruritus, Denies rash and Denies jaundice Neuro Reports Normal hearing present, Denies Abnormal speech present, Denies dizzi ness, Denies headache(s) and Denies seizure-like activity Psych Denies anxiety, Denies depression and Denies panic attacks Endo Denies cold intolerance, Denies flushing and Denies heat intolerance Jonathan/Lymph Denies easy bleeding and Denies easy bruising Aller/Immun Denies wheezing Physical Exam Vital Signs: Last Vital Signs Pulse 65 04/04/25 07:29 BP 129/81 04/04/25 07:29 BMI result Body Mass Index 31.9 Const General: healthy appearing and no acute distress Nutritional Appearance: obese Orientation/consciousness: patient oriented x3 Limitations: no limitations HEENT Head: Yes normal to inspection Ears: hearing grossly normal bilaterally Mouth: Normal oral and palatal mucosa present Eyes Sclerae: sclerae normal Pupils: Equal, round and reactive pupils present Neck Neck: Yes normal visual inspection Chest Chest palpation & inspection: normal inspection of the chest Resp Effort & Inspection: normal respiratory effort Auscultation: clear to auscultation bilaterally Cardio Palpation: normal PMI Rate: regular rate Rhythm: regular rhythm Heart sounds: S1 normal heart sound present, S2 normal heart sound present and no murmurs GI Palpation (GI): Soft to palpation, nontender and No hepatosplenomegaly present Auscultation: normal bowel sounds Rectal Exam - Male: Yes deferred Skin General skin exam: no rashes or lesions noted Neuro General: patient oriented x3, gait normal and moves all extremities Cranial nerves: Yes Equal, round and reactive pupils present and Yes Normal hearing present Speech: No Abnormal speech present Psych Appearance: grossly normal Mental Status: mental status grossly normal Assessment & Plan Assessment & Plan (1) GERD with esophagitis: Comment: Continue omeprazole 20 mg once daily. 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 03/20/21 EGD SHOWED: GE junction at 36 cms, hiatal hernia 36 to 40 cms. Focal esophagitis at GE junction and two 1.5 to 2 cms tongues of suspected Ron?s from 34 to 36 cms - biopsied. BIOPSIES SHOWED: Esophagus, distal, biopsy: - Ron esophagus with background moderate chronic inactive inflammation. - No dysplasia seen. - Squamous mucosa within normal limits. FU EGD in 3 yrs (due 01/2024) Code(s): K22.70 - Ron's esophagus without dysplasia Category: Medical (3) Colon cancer screening: Comment: 01/29/2020 colonoscopy showed diverticulosis and no polyps were detected. Patient denies known family history of colon cancer, his mom has a history of colon polyps. Patient was advised repeat colonoscopy in 5 years (due 01/2025) Code(s): Z12.11 - Encounter for screening for malignant neoplasm of colon Category: Medical (4) Diverticulosis: Code(s): K57.90 - Diverticulosis of intestine, part unspecified, without perforation or abscess without bleeding Category: Medical (5) Hepatic steatosis: Code(s): K76.0 - Fatty (change of) liver, not elsewhere classified Category: Medical Plan 54 YM with hypertension, high cholesterol, renal stones seen for symptoms of intermittent heartburn associated with bending and intake of spicy food. Dad had GERD/Barretts's esophagus and esophageal cancer and ? pancreatic CA - smoker and daily ETOH. 01/29/20 EGD showed gastritis and focal esophagitis at GE junction and two 1.5 to 2 cms tongues of suspected Barretts. 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 02/2021 Had repeat EGD? for Ron's surveillance. 09/28/24 EGD was performed for Ron's surveillance and results as noted. 10/11/24 EGD results reviewed with the patient and advised repeat EGD in 3 years (due 09/2027) Taking Omeprazole every other day with adequate control of symptoms Advised to schedule an abd US to check for fatty liver due to obesity Pt reports he goes to the Gym regularly and does not eat fried or fatty foods and BMI of 33.5 is mostly muscle and less fat. 11/12/24 ABD US SHOWED: The appearance of the liver suggests fatty infiltration without focal lesion. There is no intrahepatic bile duct dilatation. The common duct is 4.8 mm in diameter. The gallbladder is normal. There is no sonographic Reynolds sign. The main portal vein is antegrade. 04/04/25 ABD US reviewed. Advised to continue working on wt loss FU in 6 monthS Orders: Orders Vitamin D 25-OH Total Today K76.0 - Fatty (change of) liver, not elsewhere classified Vitamin B12 and Folate Today K76.0 - Fatty (change of) liver, not elsewhere classified Complete Blood Count Auto Diff Today K76.0 - Fatty (change of) liver, not elsewhere classified Liver Panel Today K76.0 - Fatty (change of) liver, not elsewhere classified Liver Fibrosis Pnl Today K76.0 - Fatty (change of) liver, not elsewhere classified Coding Level of Care Code Est Pt Level 3 (23041) Diagnoses GERD with esophagitis K21.00 Ron's esophagus without dysplasia K22.70 Colon cancer screening Z12.11 Diverticulosis K57.90 Hepatic steatosis K76.0 Time Spent (min) 17
[2025-04-04 07:29] VITALS: BP 129/81; PULSE 65; BMI 31.9
== END 2025-04-04 07:45 | disposition home or self-care (01) ==
LOC: HO.HGI 07:23
PROVIDERS: PCP Family Medicine; Referring Provider Family Medicine; Visit Provider Internal Medicine Gastroenterology
DX: K21.00 Gastro-esophageal reflux disease with esophagitis, without bleeding (principal); K22.70 Barrett's esophagus without dysplasia; K57.90 Diverticulosis of intestine, part unspecified, without perforation or abscess without bleeding; K76.0 Fatty (change of) liver, not elsewhere classified
CPT/HCPCS: 99213

== ENCOUNTER 2025-04-04 07:23 | Outpatient (REF) | payer BC, SELFPAY ==
[2025-04-04 07:59] LABS: MANUAL DIFF FLAG NO
[2025-04-04 08:17] LABS: Hematocrit 45.3 % (42.0-52.0); Hemoglobin 15.1 g/dl (14.0-18.0); Imm Gran Abs Auto 0.02 X10*3/uL (0.00-0.03); Imm Gran Pct Auto 0.4 % (0.0-0.4); Lymphocytes Absolute Auto 2.0 X10*3/uL (1.2-4.9); Mean Corpuscular HGB Conc 33.3 g/dl (31.0-36.0); Mean Corpuscular Hemoglobin 29.4 pg (27.0-33.0); Mean Corpuscular Volume 88.1 fL (80.0-98.0); NRBC Abs Auto 0.000 X10*3/uL (0.0-0.012); NRBC Pct Auto 0.0 /100WBC (0.0-0.2); Platelet Count 336 X10*3/uL (160-400); Red Blood Count 5.14 X10*6/uL (4.60-5.80); White Blood Count 5.7 X10*3/uL (4.8-10.8)
[2025-04-04 08:44] LABS: Alanine Aminotransferase 22 U/L (0-40); Albumin Level 4.5 g/dL (3.5-5.0); Alkaline Phosphatase 53 U/L (39-117); Aspartate Amino Transferase 19 U/L (5-37); Total Protein 7.3 g/dL (6.5-8.0)
[2025-04-04 09:12] LABS: Folate 14.6 ng/mL (> or = 4.0); Vitamin B12 738 pg/mL (200-900)
[2025-04-13 22:03] LABS: FIB-ALT 16 U/L (9-46); FIB-Alpha-2-Macroglobulin 155 mg/dL (106-279); FIB-Apolipoprotein A1 193 mg/dL (94-176); FIB-GGT 22 U/L (3-95); FIB-Haptoglobin 183 mg/dL (43-212); FIB-Total Bilirubin 0.4 mg/dL (0.2-1.2); Liver Fibrosis Score 0.06; Liver Fibrosis Stage F0; Nec Inflam Act Grade A0; Nec Inflam Act Score 0.04
== END 2025-04-04 07:24 | disposition home or self-care (01) ==
LOC: HO.LAB 07:23
PROVIDERS: Visit Provider Internal Medicine Gastroenterology
DX: K76.0 Fatty (change of) liver, not elsewhere classified (principal)
CPT/HCPCS: 36415; 80076; 81596; 82306; 82607; 82746; 85025